=== PATIENT | female | born 1990 | race Caucasian/White ===

== ENCOUNTER 2017-03-02 04:16 | Emergency (ER) | payer BC ==
[~2017-03-02] VITALS: Ht 162.6 cm; Wt 61.2 kg
[2017-03-02] MEDS ORDERED: ONDANSETRON PF 4 MG/2 ML VIAL. IV ONE (04:45)
[2017-03-02] MEDS ORDERED: IV NORMAL SALINE 1000ML BAG 1,000 ML IV ONE (04:45)
[2017-03-02 05:00] LABS: BASO % 1 % (0-3); EOS % 3 % (0-3); HEMATOCRIT 38.5 % (36.0-47.0); HEMOGLOBIN 13.3 g/dL (12.0-15.5); LYMPH # 3.3 x10^3/uL (1.0-4.8); LYMPH % 43 % (24-48); MEAN CORPUSCULAR HEMOGLOBIN 31 pg (25-35); MEAN CORPUSCULAR HGB CONC 35 g/dL (31-37); MEAN CORPUSCULAR VOLUME 89 fL (79-100); MONO % 6 % (0-9); NEUT % 47 % (31-73); PLATELET COUNT 167 x10^3/uL (140-400); RED BLOOD COUNT 4.34 x10^6/uL (3.50-5.40); RED CELL DISTRIBUTION WIDTH 12.8 % (11.5-14.5); WHITE BLOOD COUNT 7.6 x10^3/uL (4.0-11.0)
[2017-03-02] MEDS ORDERED: HYDROmorphone 2 MG/ML VIAL IV ONE (05:00)
[2017-03-02] MEDS ORDERED: KETOROLAC 15 MG/ML VIAL. IV ONE (05:00)
[2017-03-02 05:02] LABS: BILIRUBIN,URINE NEGATIVE (NEG); GLUCOSE,URINE NEGATIVE (NEG); NITRITE,URINE NEGATIVE (NEG); PH,URINE 6.5; PROTEIN,URINE NEGATIVE (NEG-TRACE); UROBILINOGEN,URINE 0.2 mg/dL (0.2 mg/dL)
[2017-03-02 05:15] LABS: BACTERIA,URINE MODERATE /HPF (0-FEW); RBC,URINE OCC /HPF (0-2)
[2017-03-02 05:16] LABS: SQUAMOUS EPITHELIAL CELL,UR MOD /LPF
--- NOTE | 2017-03-02 05:32 | RAD ---
PROCEDURE Limited abdominal ultrasound. HISTORY Right upper quadrant pain x2 days. TECHNIQUE Real-time ultrasound imaging of the right upper quadrant of the abdomen is performed. COMPARISON None. FINDINGS Visualized pancreas homogeneous. The IVC is patent. The liver is homogeneous and normal in echotexture. Right hepatic lobe measures 15.2 cm, normal. Portal flow is hepatopetal. Common bile duct is normal in caliber measuring 3 millimeters. The gallbladder is normal. Right kidney length is 11.4 cm. No hydronephrosis. IMPRESSION Unremarkable right upper quadrant ultrasound. Electronically signed by: Santino Figueroa MD (March 02, 2017 05:31:11)
[2017-03-02 05:51] LABS: CALCIUM 10.1 mg/dL (8.5-10.1); CREATININE 0.7 mg/dL (0.6-1.0); GFR 101.1; POTASSIUM 3.2 mmol/L (3.5-5.1)
[2017-03-02 05:56] VITALS: BP 105/68
[2017-03-02 05:57] LABS: ALBUMIN 4.1 g/dL (3.4-5.0); ALBUMIN/GLOBULIN RATIO 1.2 (1.0-1.7); TOTAL BILIRUBIN 0.3 mg/dL (0.2-1.0); TOTAL PROTEIN 7.4 g/dL (6.4-8.2)
[2017-03-02] MEDS ORDERED: ONDA4TAB10 SL (06:12)
[2017-03-02] MEDS ORDERED: HYDR-971 PO (06:12)
[2017-03-02] MEDS ORDERED: HYOS0.1265 SL (06:12)
[2017-03-02] MEDS ORDERED: IBUP-1007 PO (06:12)
--- NOTE | 2017-03-02 06:12 | PHYS DOC ---
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 Patient reports that the pain is constantly there however is been getting better and worse. Patient reports that she has a dull ache in the background and intermittently the pain gets much worse. Patient reports that she ate Strong' s at 9:30 PM and the pain started getting worse with at that time. Patient has any fevers shakes chills. Patient complaining of nausea. No diarrhea. No dysuria frequency urgency. No chest pain or shortness of breath. No vaginal discharge or bleeding. Patient is status post appendectomy. Patient reports she' s not sure if she is or not but she is trying to get with her . Patient denies any history of gallstones in the past or history of similar type symptoms. Patient denies any history of hypertension diabetes liver lung or kidney problems. Patient reports she does have an appendectomy. Patient is not allergic to any medications. Patient does not smoke drink or do any drugs. A/P #1 right upper quadrant abdominal pain. Initially this was felt to be likely secondary to choledocholithiasis/gallbladder issues. Labs were obtained patient was given adequate analgesia and ultrasound was performed. The ultrasound was read by radiology as being normal. There is no acute findings that were found at this time. Patient's gallbladder was normal. Her right kidney liver or pancreas and IVC were all within normal limits. Patient's, but measured 2.5 mm. Patient reports she feels significantly improved after the pain medicines that were given. I instructed the patient that her symptoms are highly concerning for gallbladder disease. Despite the normal ultrasound I feel that the patient might have biliary dyskinesis and I recommended that she follow up with her primary care physician in order to obtain an outpatient HIDA scan. Patient will be discharged home in stable condition on Zofran, ibuprofen, Levsin, and [place] to assist her if the pain recurs. Patient will be instructed on dietary recommendations for biliary disease. Review of Systems Review of Systems Constitutional: Denies fever or chills [] Eyes: Denies change in visual acuity, redness, or eye pain [] HENT: Denies nasal congestion or sore throat [] All other review systems are negative except as documented in history of present illness. Current Medications Current Medications Current Medications Medications (Trade) Dose Ordered Sig/Sushil Start Time Stop Time Status Last Admin Dose Admin Hydromorphone HCl (Dilaudid) 0.5 mg 1X ONCE 03/02/17 05:00 03/02/17 05:01 DC 03/02/17 04:57 0.5 MG Ketorolac Tromethamine (Toradol) 15 mg 1X ONCE 03/02/17 05:00 03/02/17 05:01 DC 03/02/17 04:57 15 MG Ondansetron HCl (Zofran) 4 mg 1X ONCE 03/02/17 04:45 03/02/17 04:48 DC 03/02/17 04:57 4 MG Sodium Chloride 1,000 ml @ 1,000 mls/hr 1X ONCE 03/02/17 04:45 03/02/17 05:44 DC 03/02/17 04:57 1,000 MLS/HR Allergies Allergies Allergies Coded Allergies Type Severity Reaction Last Updated Verified No Known Drug Allergies 03/02/17 No Physical Exam Physical Exam Constitutional: Well developed, well nourished, no acute distress, non-toxic appearance. [] HENT: Normocephalic, atraumatic, bilateral external ears normal, oropharynx moist, no oral exudates, nose normal. [] Eyes: PERRLA, EOMI, conjunctiva normal, no discharge. [] Neck: Normal range of motion, no tenderness, supple, no stridor. [] Cardiovascular:Heart rate regular rhythm, no murmur [] Lungs & Thorax: Bilateral breath sounds clear to auscultation [] Abdomen: Soft nondistended no rebound or guarding. Patient does not present with any signs or symptoms of be consistent with an acute surgical abdomen. Patient does have tenderness to palpation right upper quadrant. Patient left tenderness palpation in midepigastric area. Skin: Warm, dry, no erythema, no rash. [] Back: No tenderness, no CVA tenderness. [] Extremities: No tenderness, no cyanosis, no clubbing, ROM intact, no edema. [] Neurologic: Alert and oriented X 3, normal motor function, normal sensory function, no focal deficits noted. [] Psychologic: Affect normal, judgement normal, mood normal. [] Current Patient Data Vital Signs Vital Signs Date Time Temp Pulse Resp B/P (MAP) Pulse Ox O2 Delivery O2 Flow Rate FiO2 03/02/17 04:57 16 Room Air 03/02/17 04:23 98.2 83 135/83 (100) 100 98.2 Lab Values Laboratory Tests Test 03/02/17 03:31 03/02/17 04:24 03/02/17 04:30 POC Urine HCG, Qualitative Hcg negative (Negative) Urine Collection Type Unknown Urine Color Yellow Urine Clarity Cloudy Urine pH 6.5 Urine Specific [place] 1.020 Urine Protein Negative mg/dL (NEG-TRACE) Urine Glucose (UA) Negative mg/dL (NEG) Urine Ketones (Stick) Negative mg/dL (NEG) Urine Blood Trace (NEG) Urine Nitrite Negative (NEG) Urine Bilirubin Negative (NEG) Urine Urobilinogen Dipstick 0.2 mg/dL (0.2 mg/dL) Urine Leukocyte Esterase Small (NEG) Urine RBC Occ /HPF (0-2) Urine WBC 1-4 /HPF (0-4) Urine Squamous Epithelial Cells Mod /LPF Urine Amorphous Sediment Present /HPF Urine Bacteria Moderate /HPF (0-FEW) Urine Mucus Slight /LPF White Blood Count 7.6 x10^3/uL (4.0-11.0) Red Blood Count 4.34 x10^6/uL (3.50-5.40) Hemoglobin 13.3 g/dL (12.0-15.5) Hematocrit 38.5 % (36.0-47.0) Mean Corpuscular Volume 89 fL (79-100) Mean Corpuscular Hemoglobin 31 pg (25-35) Mean Corpuscular Hemoglobin Concent 35 g/dL (31-37) Red Cell Distribution Width 12.8 % (11.5-14.5) Platelet Count 167 x10^3/uL (140-400) Neutrophils (%) (Auto) 47 % (31-73) Lymphocytes (%) (Auto) 43 % (24-48) Monocytes (%) (Auto) 6 % (0-9) Eosinophils (%) (Auto) 3 % (0-3) Basophils (%) (Auto) 1 % (0-3) Neutrophils # (Auto) 3.6 x10^3uL (1.8-7.7) Lymphocytes # (Auto) 3.3 x10^3/uL (1.0-4.8) Monocytes # (Auto) 0.5 x10^3/uL (0.0-1.1) Eosinophils # (Auto) 0.2 x10^3/uL (0.0-0.7) Basophils # (Auto) 0.0 x10^3/uL (0.0-0.2) Laboratory Tests 03/02/17 04:30 EKG EKG [] Radiology/Procedures Radiology/Procedures [] Course & Med Decision Making Course & Med Decision Making Pertinent Labs and Imaging studies reviewed. (See chart for details) [] Dragon Disclaimer Dragon Disclaimer This electronic medical record was generated, in whole or in part, using a voice recognition dictation system. Departure Departure Impression: Primary Impression: Abdominal pain Additional Impression: Right upper quadrant pain Disposition: HOME, SELF-CARE Condition: GUARDED Referrals: NO PCP (PCP) Patient Instructions: Abdominal Pain (Nonspecific) Scripts Ondansetron (ZOFRAN ODT) 4 Mg Tab.rapdis 1 TAB SL Q6HRS Y for NAUSEA, #12 TAB Prov: ALFREDITO WILHELM MD 03/02/17 Hydrocodone/Apap 5-325 (NORCO 5-325 TABLET) 1 Each Tablet 1 TAB PO QID Y for PAIN, #10 TAB Prov: ALFREDITO WILHELM MD 03/02/17 Hyoscyamine Sulfate (LEVSIN-SL) 0.125 Mg Tab.subl 0.125 MG SL Q6-8HRS Y for abdominal cramps, #10 Prov: ALFREDITO WILHELM MD 03/02/17 Ibuprofen (IBUPROFEN) 600 Mg Tablet 600 MG PO PRN Q6HRS Y for PAIN, #20 TAB Prov: ALFREDITO WILHELM MD 03/02/17 Problem Qualifiers Primary Impression: Abdominal pain Abdominal location: right upper quadrant Qualified Codes: R10.11 - Right upper quadrant pain ALFREDITO WILHELM MD March 02, 2017 06:12
== END 2017-03-02 06:27 | disposition home or self-care (01) ==
LOC: ER 04:16
DX: R10.11 Right upper quadrant pain (principal); Z90.49 Acquired absence of other specified parts of digestive tract; R10.13 Epigastric pain; R50.9 Fever, unspecified
CPT/HCPCS: 36415; 76705; 80053; 81001; 81025; 83690; 85027; 87086; 96361; 96374; 96375; 99285; J1170; J1885; J2405; J7030

== ENCOUNTER 2019-04-12 19:20 | Emergency (ER) | payer BC ==
[~2019-04-12] VITALS: Ht 162.6 cm; Wt 56.7 kg
[~2019-04-12 19:20] MED LIST: HYDR-3164 PO; HYOS0.1265 SL; IBUP-1007 PO; ONDA4TAB10 SL
[2019-04-12] MEDS ORDERED: ONDANSETRON PF 4 MG/2 ML VIAL. IV ONE (20:15)
[2019-04-12] MEDS ORDERED: KETOROLAC 15 MG/ML VIAL. IV ONE (20:15)
[2019-04-12] MEDS ORDERED: MORPHINE SULFATE 4 MG/ML VIAL. IV ONE (20:15)
[2019-04-12] MEDS ORDERED: IV NORMAL SALINE 1000ML BAG 1,000 ML IV ONE (20:15)
--- NOTE | 2019-04-12 20:18 | PHYS DOC ---
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 The patient states the symptoms started yesterday which got off work. The patient states she's been running 100.2 fever at home. Tried Azo, Gas-X, and [place] at home with minimal effect. Rates her pain as 7 out of 10 and sharp. Review of Systems Review of Systems Constitutional: Reports fever or chills [] Eyes: Denies change in visual acuity, redness, or eye pain [] HENT: Denies nasal congestion or sore throat [] Respiratory: Denies cough or shortness of breath [] Cardiovascular: No additional information not addressed in HPI [] GI: Reports Left sided abdominal pain/flank pain, and nausea, Denies vomiting, bloody stools or diarrhea [] : Reports dysuria but denies hematuria [] Musculoskeletal: Denies back pain or joint pain [] Integument: Denies rash or skin lesions [] Neurologic: Denies headache, focal weakness or sensory changes [] Endocrine: Denies polyuria or polydipsia [] Complete systems were reviewed and found to be within normal limits, except as documented in this note. Current Medications Current Medications Current Medications Medications (Trade) Dose Ordered Sig/Sushil Start Time Stop Time Status Last Admin Dose Admin Ceftriaxone Sodium (Rocephin) 1 gm 1X ONCE 04/12/19 21:00 04/12/19 21:01 DC 04/12/19 21:17 1 GM Ketorolac Tromethamine (Toradol 15mg Vial) 15 mg 1X ONCE 04/12/19 20:15 04/12/19 20:19 DC 04/12/19 20:36 15 MG Morphine Sulfate (Morphine Sulfate) 4 mg 1X ONCE 04/12/19 20:15 04/12/19 20:19 DC 04/12/19 20:36 4 MG Ondansetron HCl (Zofran) 4 mg 1X ONCE 04/12/19 20:15 04/12/19 20:19 DC 04/12/19 20:34 4 MG Potassium Chloride (Klor-Con) 20 meq 1X ONCE 04/12/19 21:00 04/12/19 21:01 DC 04/12/19 21:17 20 MEQ Sodium Chloride 1,000 ml @ 1,000 mls/hr 1X ONCE 04/12/19 20:15 04/12/19 21:14 DC 04/12/19 20:34 1,000 MLS/HR Allergies Allergies Allergies Coded Allergies Type Severity Reaction Last Updated Verified No Known Drug Allergies 03/02/17 No Physical Exam Physical Exam Constitutional: Well developed, well nourished, no acute distress, non-toxic appearance. [] HENT: Normocephalic, atraumatic, bilateral external ears normal, oropharynx moist, no oral exudates, nose normal. [] Eyes: PERRLA, EOMI, conjunctiva normal, no discharge. [] Neck: Normal range of motion, no tenderness, supple, no stridor. [] Cardiovascular:Heart rate regular rhythm, no murmur [] Lungs & Thorax: Bilateral breath sounds clear to auscultation [] Abdomen: Bowel sounds normal, soft, left sided abdominal tenderness, no masses, no pulsatile masses. [] Skin: Warm, dry, no erythema, no rash. [] Back: No tenderness, has left sided CVA tenderness. [] Extremities: No tenderness, no cyanosis, no clubbing, ROM intact, no edema. [] Neurologic: Alert and oriented X 3, normal motor function, normal sensory function, no focal deficits noted. [] Psychologic: Affect normal, judgement normal, mood normal. [] Current Patient Data Vital Signs Vital Signs Date Time Temp Pulse Resp B/P (MAP) Pulse Ox O2 Delivery O2 Flow Rate FiO2 04/12/19 20:36 16 Room Air 04/12/19 19:39 98.1 97 135/78 (97) 99 98.1 Lab Values Laboratory Tests Test 04/12/19 19:30 04/12/19 19:44 04/12/19 19:55 Urine Collection Type Unknown Urine Color [place] Urine Clarity Cloudy Urine pH 6.5 Urine Specific [place] 1.020 Urine Protein Negative mg/dL (NEG-TRACE) Urine Glucose (UA) Negative mg/dL (NEG) Urine Ketones (Stick) Negative mg/dL (NEG) Urine Blood Large (NEG) Urine Nitrite Positive (NEG) Urine Bilirubin Negative (NEG) Urine Urobilinogen Dipstick 1.0 mg/dL (0.2 mg/dL) Urine Leukocyte Esterase Moderate (NEG) Urine RBC 1-2 /HPF (0-2) Urine WBC 11-20 /HPF (0-4) Urine Squamous Epithelial Cells Many /LPF Urine Amorphous Sediment Present /HPF Urine Bacteria Many /HPF (0-FEW) Urine Mucus Mod /LPF POC Urine HCG, Qualitative Hcg negative (Negative) White Blood Count 8.4 x10^3/uL (4.0-11.0) Red Blood Count 4.13 x10^6/uL (3.50-5.40) Hemoglobin 12.6 g/dL (12.0-15.5) Hematocrit 37.2 % (36.0-47.0) Mean Corpuscular Volume 90 fL (79-100) Mean Corpuscular Hemoglobin 31 pg (25-35) Mean Corpuscular Hemoglobin Concent 34 g/dL (31-37) Red Cell Distribution Width 13.3 % (11.5-14.5) Platelet Count 195 x10^3/uL (140-400) Neutrophils (%) (Auto) 71 % (31-73) Lymphocytes (%) (Auto) 18 % (24-48) L Monocytes (%) (Auto) 7 % (0-9) Eosinophils (%) (Auto) 3 % (0-3) Basophils (%) (Auto) 1 % (0-3) Neutrophils # (Auto) 6.0 x10^3uL (1.8-7.7) Lymphocytes # (Auto) 1.5 x10^3/uL (1.0-4.8) Monocytes # (Auto) 0.6 x10^3/uL (0.0-1.1) Eosinophils # (Auto) 0.2 x10^3/uL (0.0-0.7) Basophils # (Auto) 0.0 x10^3/uL (0.0-0.2) Sodium Level 140 mmol/L (136-145) Potassium Level 3.4 mmol/L (3.5-5.1) L Chloride Level 106 mmol/L (98-107) Carbon Dioxide Level 27 mmol/L (21-32) Anion Gap 7 (6-14) Blood Urea Nitrogen 19 mg/dL (7-20) Creatinine 1.3 mg/dL (0.6-1.0) H Estimated GFR (Cockcroft-Gault) 48.8 BUN/Creatinine Ratio 15 (6-20) Glucose Level 97 mg/dL (70-99) Lactic Acid Level 0.7 mmol/L (0.4-2.0) Calcium Level 10.2 mg/dL (8.5-10.1) H Total Bilirubin 0.6 mg/dL (0.2-1.0) Aspartate Amino Transferase (AST) 17 U/L (15-37) Alanine Aminotransferase (ALT) 22 U/L (14-59) Alkaline Phosphatase 51 U/L (46-116) Total Protein 6.5 g/dL (6.4-8.2) Albumin 3.7 g/dL (3.4-5.0) Albumin/Globulin Ratio 1.3 (1.0-1.7) Lipase 100 U/L (73-393) Laboratory Tests 04/12/19 19:55 Laboratory Tests 04/12/19 19:55 EKG EKG [] Radiology/Procedures Radiology/Procedures []PATIENT: CHRISTOPHER BRUNSONACCOUNT: [id number]#: [id number] : 1990 LOCATION: ER AGE: 28 SEX: F EXAM STATUS: REG ER ORD. PHYSICIAN: PARIS CAVANAUGH APRN REASON: L flank pain PROCEDURE: CT ABDOMEN PELVIS WO CONTRAST CT abdomen and pelvis without contrast. HISTORY: Left flank pain CT scan of the abdomen and pelvis was done without contrast. Lung bases are clear. There is no effusion. Liver is normal in appearance. There is no calcified gallstone. Spleen and adrenal glands are unremarkable. There are punctate intrarenal calculi in the right kidney. There are punctate intrarenal calculi in the left kidney. There is left hydronephrosis. Lack of fat limits evaluation. There are phleboliths in the pelvis. There is a probable 2 mm calculus in the distal ureter although it evaluation is somewhat limited. There are bilateral ovarian cysts including a septated cyst or 2 adjacent cysts in the left ovary measuring 4.4 x 4.4 cm. There is also a cyst behind the uterus possibly in the posterior right ovary measuring 3.3 cm and a second cystic focus in the right pelvis measuring 3.2 cm. Uterus is normal in size. There is no free fluid in the pelvis. There is no bowel obstruction. IMPRESSION: 1. Multiple bilateral intrarenal calculi. 2. Left hydronephrosis. 3. Multiple phleboliths in the pelvis make evaluation more difficult but probable 2 mm distal ureteral calculus on the left. 4. Bilateral ovarian cysts, follow-up with ultrasound could be of benefit. PQRS Compliance Statement: One or more of the following individualized dose reduction techniques were utilized for this examination: 1. Automated exposure control 2. Adjustment of the mA and/or kV according to patient size 3. Use of iterative reconstruction technique Electronically signed by: David Canela MD (04/12/2019 8:57 PM) [facility] Course & Med Decision Making Course & Med Decision Making Pertinent Labs and Imaging studies reviewed. (See chart for details) Will order labs, CT abdomen wo contrast, UA, and supportive care. Patient is agreeable. Urine shows bacteria. CT scan shows left hydronephrosis. Will d/c home with Keflex, Flomax, Zofran, and [place]. Will have follow up with urology and strain urine. Dragon Disclaimer Dragon Disclaimer This electronic medical record was generated, in whole or in part, using a voice recognition dictation system. Departure Departure Impression: Primary Impression: Hydronephrosis Additional Impression: Urinary tract infection Disposition: 01 HOME, SELF-CARE Condition: STABLE Referrals: NO PCP (PCP) MARTY LEE MD Patient Instructions: Hydronephrosis Additional Instructions: Thank you for visiting [facility]. We appreciate you trusting us with your care. If any additional problems come up don't hesitate to return to visit us. Please follow up with your primary care provider so they can plan additional care if needed and know about the problem that you had. If symptoms worsen come back to the Emergency Department. Any concerning symptoms that start such as chest pain, shortness of Air, weakness or numbness on one side of the body, running high fevers or any other concerning symptoms return to the ER. Please fill your medications at any pharmacy and follow the prescription instructions. You have been prescribed an antibiotic today to help fight your infection. Please take all of the antibiotic as directed. If after 48 hours the infection is not improving, please return for more care. If the infection worsens, return to ER for additional care. Scripts Hydrocodone/Apap 5-325 (NORCO 5-325 TABLET) 1 Each Tablet 1 TAB PO PRN Q6HRS PRN for PAIN for 7 Days, #14 TAB 0 Refills Prov: PARIS CAVANAUGH APRN 04/12/19 Ondansetron (ONDANSETRON ODT) 4 Mg Tab.rapdis 1 TAB PO PRN Q6-8HRS PRN for NAUSEA, #16 TAB Prov: PARIS CAVANAUGH APRN 04/12/19 Cephalexin (KEFLEX) 500 Mg Capsule 1 CAP PO BID for 7 Days, #14 CAP Prov: PARIS CAVANAUGH APRN 04/12/19 Tamsulosin Hcl (FLOMAX) 0.4 Mg Cap.er.24h 1 CAP PO DAILY, #30 CAP 11 Refills Prov: PARIS CAVANAUGH APRN 04/12/19 Problem Qualifiers Primary Impression: Hydronephrosis Hydronephrosis type: unspecified Qualified Codes: N13.30 - Unspecified hydronephrosis Additional Impression: Urinary tract infection Urinary tract infection type: acute cystitis Hematuria presence: with hematuria Qualified Codes: N30.01 - Acute cystitis with hematuria PARIS CAVANAUGH APRN Apr 12, 2019 20:18
[2019-04-12 20:36] LABS: BILIRUBIN,URINE NEGATIVE (NEG); CLARITY,URINE CLOUDY; COLOR,URINE AMBER; NITRITE,URINE POSITIVE (NEG); PH,URINE 6.5; PROTEIN,URINE NEGATIVE (NEG-TRACE)
[2019-04-12 20:38] LABS: BASO % 1 % (0-3); EOS # 0.2 x10^3/uL (0.0-0.7); EOS % 3 % (0-3); HEMATOCRIT 37.2 % (36.0-47.0); HEMOGLOBIN 12.6 g/dL (12.0-15.5); LYMPH # 1.5 x10^3/uL (1.0-4.8); LYMPH % 18 % (24-48); MEAN CORPUSCULAR HEMOGLOBIN 31 pg (25-35); MEAN CORPUSCULAR HGB CONC 34 g/dL (31-37); MEAN CORPUSCULAR VOLUME 90 fL (79-100); MONO # 0.6 x10^3/uL (0.0-1.1); MONO % 7 % (0-9); NEUT % 71 % (31-73); PLATELET COUNT 195 x10^3/uL (140-400); RED BLOOD COUNT 4.13 x10^6/uL (3.50-5.40); RED CELL DISTRIBUTION WIDTH 13.3 % (11.5-14.5); WHITE BLOOD COUNT 8.4 x10^3/uL (4.0-11.0)
[2019-04-12 20:44] LABS: CALCIUM 10.2 mg/dL (8.5-10.1); CREATININE 1.3 mg/dL (0.6-1.0); GFR 48.8; POTASSIUM 3.4 mmol/L (3.5-5.1)
[2019-04-12 20:45] LABS: AMORPHOUS SEDIMENT,UR PRESENT /HPF; BACTERIA,URINE MANY /HPF (0-FEW); SQUAMOUS EPITHELIAL CELL,UR MANY /LPF
[2019-04-12 20:50] LABS: ALBUMIN 3.7 g/dL (3.4-5.0); ALBUMIN/GLOBULIN RATIO 1.3 (1.0-1.7); TOTAL BILIRUBIN 0.6 mg/dL (0.2-1.0); TOTAL PROTEIN 6.5 g/dL (6.4-8.2)
[2019-04-12] MEDS ORDERED: cefTRIAXone IV Push 1 GM VIAL. IVP ONE (21:00)
[2019-04-12] MEDS ORDERED: POTASSIUM CHLORIDE 20 MEQ TABLET.ER. PO ONE (21:00)
--- NOTE | 2019-04-12 21:00 | RAD ---
CT abdomen and pelvis without contrast. HISTORY: Left flank pain CT scan of the abdomen and pelvis was done without contrast. Lung bases are clear. There is no effusion. Liver is normal in appearance. There is no calcified gallstone. Spleen and adrenal glands are unremarkable. There are punctate intrarenal calculi in the right kidney. There are punctate intrarenal calculi in the left kidney. There is left hydronephrosis. Lack of fat limits evaluation. There are phleboliths in the pelvis. There is a probable 2 mm calculus in the distal ureter although it evaluation is somewhat limited. There are bilateral ovarian cysts including a septated cyst or 2 adjacent cysts in the left ovary measuring 4.4 x 4.4 cm. There is also a cyst behind the uterus possibly in the posterior right ovary measuring 3.3 cm and a second cystic focus in the right pelvis measuring 3.2 cm. Uterus is normal in size. There is no free fluid in the pelvis. There is no bowel obstruction. IMPRESSION: 1. Multiple bilateral intrarenal calculi. 2. Left hydronephrosis. 3. Multiple phleboliths in the pelvis make evaluation more difficult but probable 2 mm distal ureteral calculus on the left. 4. Bilateral ovarian cysts, follow-up with ultrasound could be of benefit. PQRS Compliance Statement: One or more of the following individualized dose reduction techniques were utilized for this examination: 1. Automated exposure control 2. Adjustment of the mA and/or kV according to patient size 3. Use of iterative reconstruction technique Electronically signed by: David Canela MD (04/12/2019 8:57 PM) [facility]
[2019-04-12] MEDS ORDERED: ONDA4TAB12 PO (21:48)
[2019-04-12] MEDS ORDERED: TAMS0.4C97 PO (21:48)
[2019-04-12] MEDS ORDERED: HYDR-3164 PO (21:48)
[2019-04-12] MEDS ORDERED: CEPH-264 PO (21:48)
[2019-04-12 22:30] VITALS: BP 123/81
[2019-04-12 22:34] LABS: BILIRUBIN,URINE NEGATIVE (NEG); CLARITY,URINE CLEAR; COLOR,URINE AMBER; NITRITE,URINE POSITIVE (NEG); PROTEIN,URINE NEGATIVE (NEG-TRACE); UROBILINOGEN,URINE 0.2 mg/dL (0.2 mg/dL)
[2019-04-12 22:43] LABS: SQUAMOUS EPITHELIAL CELL,UR MOD /LPF
[2019-04-12 22:45] LABS: BACTERIA,URINE FEW /HPF (0-FEW); RBC,URINE 20-40 /HPF (0-2)
[2019-04-12 22:47] LABS: HYALINE CASTS, URINE FEW /HPF
== END 2019-04-12 23:07 | disposition home or self-care (01) ==
LOC: ER 19:20
DX: N30.01 Acute cystitis with hematuria (principal); R11.0 Nausea; R42 Dizziness and giddiness; F17.210 Nicotine dependence, cigarettes, uncomplicated; Z90.89 Acquired absence of other organs
CPT/HCPCS: 36415; 74176; 80053; 81001; 81025; 83605; 83690; 85025; 87086; 96361; 96374; 96375; 99285; J0696; J1885; J2270; J2405; J7030